=== PATIENT | female | born 1970 | race Caucasian/White ===

== ENCOUNTER 2021-03-24 15:22 | Emergency (ER) | payer BC, SELFPAY ==
[2021-03-24 16:20] VITALS: BP 146/81; PULSE 99; RESP 18; TEMP 36.9; O2SAT 98; BMI 29.2
[2021-03-24 17:02] LABS: UTC Influenza A Antigen Negative (Negative); UTC Influenza B Antigen Negative (Negative); UTC Strep Screen (Rapid) Negative (Negative)
--- NOTE | 2021-03-24 17:18 | HMH.EDUTC ---
[facility] Disposition Clinical Impression: Bronchitis Sinusitis Qualifiers: Sinusitis location: unspecified location Chronicity: unspecified Qualified Code(s): J32.9 - Chronic sinusitis, unspecified Disposition: Home, Self-Care Condition on Discharge: Good Instructions: Sinusitis, Acute Bronchitis, DI for Sinusitis Additional Instructions: *Monitor Temp, Over the counter Motrin or Tylenol as directed/as needed Tylenol every 4 hours and Motrin every 6 hours (as long as your family doctor has told you that you can take it) for fever or pain. and straight to ER if unable to lower temp less than 101.0 after medication given *Warm salt water gargles may help to soothe the throat *Throat Lozenges *Warm fluids like tea with honey may help to soothe the throat *Sleep elevated *Humidifier/Vaporizer *Flonase 2 sprays in each nostril daily but be aware that it may take 2-3 days before you notice improvement Take medication as prescribed Follow up IMMEDIATELY for new or worsening symptoms or no Noticeable improvement over the next 48-72 hours. 911 for difficulty breathing or swallowing You were tested for today for COVID19 your test result should be back in the next 24-48 hours, you was given handout on how to check for your results on [facility] Portal if you have issues or no internet access you may call the [facility] You was given a handout with instructions for Self Quarantine and Self isolation for while you wait on test results and what to do if they are positive If you are positive the Health Dept will be contacting you also Make sure to take your Vitamins Vit. C Vit D and Zinc if you can take them Prescriptions: Doxycycline Monohydrate [Doxycycline [place] 100mg Tab] 100 mg PO Q12 7 Days #14 tab Transmission Status: Pending to [facility] #[id number] Fluticasone Propionate [Flonase 50mcg nasal spray 16gm] 1 spr NS DAILY #1 each Transmission Status: Pending to [facility] #[id number] Referrals: Yadi Glynn MD [Primary Care Provider] - As needed Forms: Work/School Release Time of Disposition: 17:33 Medical Decision Making - Roge Inquiry Pt receiving controlled substance: No Roge was queried for this patient: No Vital Signs: 03/24/21 16:20 Temperature 98.4 F Temperature Source Oral Pulse Rate [Right Brachial] 99 H Respiratory Rate 18 Blood Pressure [Right Arm] 146/81 H Blood Pressure Mean [Right Arm] 102 Blood Pressure Source [Right Arm] Automatic Cuff Blood Pressure Position [Right Arm] Sitting 02 Sat by Pulse Oximetry 98 Oxygen Delivery Method Room Air - Lab Data Lab results reviewed: Yes: I reviewed the patient's lab results. Lab Results 03/24/21 17:00: Influenza Type A Ag Negative, Influenza Type B Ag Negative 03/24/21 17:00: Strep Scn Rapid Clinic Negative Orders (Tests/Meds): ORDERS Category Date Time Status Covid-19 Nasal PCR ([facility]) Routine Lab 03/24/21 17:00 Ordered Strep Screen Confirmation Stat Micro 03/24/21 17:00 Received [facility] UTC HPI - General Stated complaint: sore thros,coughSOB,GARZA,congestion Time Seen by Provider: 03/24/21 17:19 Mode of Arrival: Ambulatory Source of Information: Patient Limitations: No Limitations Description of Symptoms (Recalled from Triage Doc. by RN): PATIENT C/O HEAD AND CHEST CONGESTION, SORE THROAT, COUGH, SINUS PRESSURE AND HEADACHE X 3 WEEKS. RECENTLY TREATED BY PCP, IS NOT BETTER HEENT Symptoms (Recalled from RN notes): Yes Resp Symptoms (Recalled from RN notes): Yes Skin Symptoms (Recalled from RN notes): No MS Symptoms (Recalled from RN notes): No Functional Status (Recalled from RN notes): WNL - History of Present Illness Provider Complaint: Patient states that she has been having headache, sore throat Sinus pain and pressure and headache for about 3 weeks State that she seen her PCP and given medication but symptoms havent improved States that even her teeth are hurting now so she came back in to get checked - Related Data Pre
[2021-03-24 18:12] VITALS: BP 146/81; PULSE 99; RESP 18; TEMP 36.9; O2SAT 98
== END 2021-03-24 18:13 | disposition home or self-care (01) ==
PROVIDERS: Emergency Provider Nurse Practitioner; PCP Family Medicine
DX: U07.1 COVID-19 (principal); J20.9 Acute bronchitis, unspecified; J32.9 Chronic sinusitis, unspecified
CPT/HCPCS: 87804; 87880; 99203; C9803; G0463; U0003; U0005

== ENCOUNTER → 2021-08-04 14:09 | Outpatient (CLI) | payer BC, SELFPAY | PROVIDERS: Visit Provider Nurse Practitioner | DX: Z20.822 Contact with and (suspected) exposure to COVID-19 (principal) | CPT/HCPCS: C9803; U0003; U0005 ==

== ENCOUNTER → 2021-11-29 12:08 | Outpatient (CLI) | payer BC, SELFPAY | PROVIDERS: Visit Provider Surgery | DX: Z01.812 Encounter for preprocedural laboratory examination (principal); Z20.822 Contact with and (suspected) exposure to COVID-19; Z12.11 Encounter for screening for malignant neoplasm of colon | CPT/HCPCS: C9803; U0003; U0005 ==

== ENCOUNTER 2021-12-02 08:22 | Day surgery (SDC) | payer BC, SELFPAY ==
[2021-11-28 10:29] VITALS: BMI 32.1
[2021-12-02 08:46] VITALS: BP 169/79; PULSE 102; RESP 18; TEMP 36.8; O2SAT 97
--- NOTE | 2021-12-02 09:00 | P.PN_ITS ---
[facility] Anesthesia Checklist - Structural Data Admitted From: Home Planned Operative Procedure/s: colonoscopy Consent for Planned Operative Procedure(s) Verified: Yes - Airway Assessment C-Spine Mobility Assessed: Yes TMJ Mobility Assessed: Yes Dentition: Good Dentition - Neurological Assessment Level of Consciousness: Awake, Alert, Appropriate - Anesthesia Plan Anesthesia Risk discussed: Yes Anesthesia Plan: Verified ASA Class: I Anesthesia Type: MAC [facility] History I have reviewed the patient's past medical history: Yes Medical History: Denies:: Cancer, Diabetes Mellitus Type 1, Diabetes Mellitus Type 2, Internal Pacemaker, MRSA, Seizures *Have you ever received a pneumonia vaccine?: No *Have you received a flu vaccine this season?: Yes Anesthesia experience/problems:: none Other Surgeries: No: Pacemaker Amputation: No Fractures: No - *Social History Last grade of school completed: High school graduate Smoking Status: Never smoker Alcohol Intake: current Alcohol Intake Frequency:: a few times a week Substance Use Type: denies use *Occupational Status:: employed *Travel in the last 8 weeks: None Family Hx:: No significant family history
[2021-12-02 09:24] LABS: Urine Pregnancy, HCG Qual. Negative (Negative)
[2021-12-02 09:31] VITALS: O2SAT 97
--- NOTE | 2021-12-02 09:57 | HMH.SCOPE ---
- Procedure: Date: 12/02/21 Patient Date of :: 1970 Procedure Performed:: Colonoscopy Indications:: Screening Performing Provider:: Evangelista Holt MD Referring Provider:: . Sedation:: Monitored anesthesia care Procedure:: After informed consent was obtained the patient was taken to the endoscopy suite. Sedation ensued after the patient was transferred to the left lateral decubitus position. Pulse, blood pressure, and oxygen saturation were monitored throughout the procedure. Digital rectal exam revealed no significant abnormality. The colonoscope was placed in position. The entire colon was evaluated. The colonoscope was carefully removed and the patient was transferred to recovery in stable condition. Please see findings and specimens below for detail. Findings:: Bowel preparation moderate to poor (somewhat improved visualization with extensive irrigation and suctioning) Mild anal stenosis Mild hemorrhoidal cushions Mild scattered diverticulosis Specimens:: None Recommendations:: Repeat colonoscopy in approximately 3 years with extended bowel preparation. Complications:: No immediate Estimated blood obtained (mL): 0
[2021-12-02 10:00] VITALS: BP 119/66; PULSE 91; RESP 16; TEMP 36.5; O2SAT 96
[2021-12-02 10:10] VITALS: BP 118/69; PULSE 76; RESP 16; O2SAT 96
[2021-12-02 10:20] VITALS: BP 113/75; PULSE 76; RESP 16; O2SAT 96
[2021-12-02 10:30] VITALS: BP 113/75; PULSE 70; RESP 16; TEMP 36.5; O2SAT 97
== END 2021-12-02 10:30 | disposition home or self-care (01) ==
LOC: OUTP 08:23
PROVIDERS: PCP Family Medicine; Visit Provider Surgery
PROC: 0DJD8ZZ Inspection of Lower Intestinal Tract, Via Natural or Artificial Opening Endoscopic (ICD-10-PCS; CPT 45378; principal; 2021-12-02 09:30)
DX: Z12.11 Encounter for screening for malignant neoplasm of colon (principal); K62.4 Stenosis of anus and rectum; K57.30 Diverticulosis of large intestine without perforation or abscess without bleeding; K64.9 Unspecified hemorrhoids; Z79.82 Long term (current) use of aspirin; Z79.899 Other long term (current) drug therapy
CPT/HCPCS: 45378; 81025; J2704

== ENCOUNTER → 2022-07-06 08:19 | Outpatient (CLI) | payer BC, SELFPAY ==
--- NOTE | 2022-07-06 08:19 | US_ITS ---
FINAL REPORT CLINICAL HISTORY: abnormal vaginal bleeding FINDINGS: Transvaginal sonographic images of the pelvis were obtained. The uterus measures 93 x 63 x 50 mm. The endometrium measures 9 mm, which is within normal limits. There is a 2.6 x 2.1 cm mass in the fundus consistent with a fibroid. The right ovary measures 2.8 cm in length and left ovary measures 2.3 cm in length. Normal blood flow seen to the ovaries. Small follicles are present. There is no evidence of free fluid. IMPRESSION: 2.6 cm uterine fibroid. Reviewed, Interpreted and Dictated by Gil Kemp III, MD Transcribed by Mitchell John Authenticated and . [facility]
== END ==
PROVIDERS: PCP Family Medicine; Visit Provider Obstetrics & Gynecology
DX: N93.9 Abnormal uterine and vaginal bleeding, unspecified (principal)
CPT/HCPCS: 76830

== ENCOUNTER → 2022-07-22 16:38 | Outpatient (CLI) | payer BC, SELFPAY | LOC: RT 16:40 | PROVIDERS: PCP Family Medicine; Visit Provider Family Medicine | DX: R00.2 Palpitations (principal) | CPT/HCPCS: 93225; 93226 ==

== ENCOUNTER → 2022-08-28 11:43 | Outpatient (CLI) | payer BC, SELFPAY ==
[2022-08-28 12:38] LABS: Basophils # 0.1 K/mm3 (0-0.2); Eosinophils # 0.1 K/mm3 (0.0-0.4); Hematocrit 36.9 % (37.0-47.0); Hemoglobin 12.1 g/dL (12.2-16.2); Lymphocytes # 1.6 K/mm3 (0.7-4.5); Lymphocytes % 22.8 % (10-50); Mean Corpuscular HGB Conc 32.8 g/dL (31.8-35.4); Mean Corpuscular Hemoglobin 28.9 pg (27.0-31.2); Mean Corpuscular Volume 88.2 fl (81-99); Mean Platelet Volume 7.5 fl (7.4-10.4); Monocytes # 0.4 K/mm3 (0.1-1.0); Monocytes % 5.1 % (1.7-9.3); Neutrophils % 69.2 % (37.0-80.0); Platelet Count 449 K/mm3 (142-424); Red Blood Count 4.18 M/mm3 (4.20-5.40); Red Cell Distribution Width 16.3 % (11.5-17.5); White Blood Count 7.2 K/mm3 (4.8-10.8)
[2022-08-28 12:59] LABS: Chloride 107 mmol/L (98-107); Potassium 4.7 mmoL/L (3.5-5.1); Sodium 141 mmol/L (136-145)
[2022-08-28 13:02] LABS: Alanine Aminotransferase 23 U/L (12-78); Albumin Level 4.4 g/dl (3.5-5.0); Albumin/Globulin Ratio 1.7 (1.1-1.8); Alkaline Phosphatase 62 U/L (38-126); Anion Gap 9.7 mEq/L (5-15); Aspartate Amino Transferase 29 U/L (14-36); Bilirubin,Total 0.4 mg/dl (0.2-1.3); Blood Urea Nitrogen 8 mg/dl (7-17); Calcium 9.4 mg/dl (8.4-10.2); Carbon Dioxide 29 mmol/L (22.0-30.0); Estimated Glomerular Filt Rate 106 ml/min (>60); GFR (African American) 128 ML/MIN (>60); Globulin 2.6 g/dL (1.3-3.2); Glucose 99 mg/dl (74-100)
[2022-08-28 13:21] LABS: HCG,Quantitative < 2 mIU/ml (0-5.42)
== END ==
PROVIDERS: PCP Family Medicine; Visit Provider Obstetrics & Gynecology
DX: Z01.812 Encounter for preprocedural laboratory examination (principal); N92.0 Excessive and frequent menstruation with regular cycle
CPT/HCPCS: 36415; 80053; 84702; 85025

== ENCOUNTER 2022-08-31 06:02 | Day surgery (SDC) | payer BC, SELFPAY ==
[2022-08-27 13:24] VITALS: BMI 29.2
[2022-08-31 06:25] VITALS: BP 137/83; PULSE 88; RESP 18; TEMP 36.3; O2SAT 100
--- NOTE | 2022-08-31 06:57 | EXP.ANES.CKL ---
[facility] Disclaimer: The information contained in this section may have been updated after the patient was seen, as this information can be updated by other users. Medical History History of hypertension Hyperlipemia Obesity with body mass index greater than 30 Uterine leiomyoma Surgical History History of History of colonoscopy Family History Other Cancer Heart attack Hyperlipidemia Hypertension Thyroid disorder Social History Smoking Status: Never smoker alcohol intake: current substance use type: denies use current occupational status: employed Travel in the last 8 weeks: None household members: family housing: house marital status: education level: high school caffeine: No special deny needs: No agree to transfusion: No do you feel safe at home: Yes victim of physical abuse: No victim of emotional abuse: No victim of sexual abuse: No would you like helpful sources: No [facility] Anesthesia Checklist Patient Identification Patient Identification: Arm Band and Family Structural Data Admitted From: Home Planned Operative Procedure/s: D & C, Hysteroscopy, Myosure and Novasure. Consent for Planned Operative Procedure(s) Verified: Yes Verified Documents: Surgical Consent NPO Status Verified Time NPO: 00:00 Additional verifications Patient : No Anesthesia Reactions: No (Nausea) Hx Blood Transfusions: No Blood Transfusion Reaction: No Cephalosporin Allergy: No Previous Colonoscopy: No Airway Assessment C-Spine Mobility Assessed: Yes TMJ Mobility Assessed: Yes Dentition: Good Dentition Neurological Assessment Level of Consciousness: Awake, Alert, Appropriate and Follows Commands Hx Seizures: No Numbness or tingling in extremities: No Anesthesia Plan Anesthesia Risk discussed: Yes ASA Class: II Anesthesia Type: General Preoperative Comments Pre-Operative Comments: PONV, Scopolamine patch. Hypertension, murmur.
[2022-08-31 08:22] VITALS: BP 101/62; PULSE 80; RESP 16; TEMP 36.6; O2SAT 92
[2022-08-31 08:32] VITALS: BP 107/66; PULSE 82; RESP 16; O2SAT 92
[2022-08-31 08:42] VITALS: BP 113/71; PULSE 78; RESP 16; O2SAT 94
[2022-08-31 08:52] VITALS: BP 121/74; PULSE 76; RESP 16; O2SAT 95
[2022-08-31 09:26] VITALS: TEMP 43
--- NOTE | 2022-09-01 18:13 | P.OP_ITS ---
Date of procedure: 09/01/22 Pre-op Diagnosis:: 1 Heavy menstrual bleeding 2. Uterine fibroid 3. Severe dysmenorrhea Post-op Diagnosis:: Same Procedure performed:: D&C Hyseroscopy with Myosure excision of submucosal fibroid Surgeon:: Adriane Prasad MD MARKET GARDENER:: Other Anesthesia: MAC Estimated blood loss (mL): 5 Operative findings:: submucosal fibroid proliferative endometrium Operative note:: The patient was taken to the operating room and general anesthesia was administered. She was prepped/draped in lithotomy position. The anterior lip of the cervix was grasped with a single tooth tenaculum and the cervix was dilated with Wadsworth dilators of serially increasing size until the external os was able to accomodate the Myosure hysteroscope. The hysteroscope was advanced through the cervix and into the uterine cavity, which was distended with LR. Once the uterus was sufficiently distended, the cavity was evaluated and revealed proliferative endometrium and a uterine mass c/w fibroid. The Myosure was inserted into the hysteroscope and the fibriod was excised successfully and without complication or significant fluid deficit. The rest of the endometrium was biopsiedl After the conclusion of this procedure, the Myosure and hysteroscope were removed from the uterus. The uterine cavity sounded to a length of 7cm. The Novasure was inserted through the cervix and expanded to fit the width of the uterus, with a width of 3.5cm. After a successful cavity assessment, the device was deployed and the endometrial ablation was completed in 86seconds. Once the device had turned off, the Novasure was removed from the uterus and the hysteroscope was reinserted into the uterine cavity. The cavity appeared diffusely cauterized. The hysteroscope was removed from the uterus and all instruments removed from the vagina. The tenaculum site was hemostatic. All sponge/lap/needle/instrument counts correct x2. Total EBL: 5cc. The patient was taken out of lithotomy position, extubated and taken to the PACU in stable condition. Condition: stable Disposition: PACU Specimens:: endometrium Complications:: none
== END 2022-08-31 08:52 | disposition home or self-care (01) ==
PROVIDERS: PCP Family Medicine; Visit Provider Obstetrics & Gynecology
PROC: (CPT 58558; principal; 2022-08-31 07:30)
DX: N92.0 Excessive and frequent menstruation with regular cycle (principal); N94.6 Dysmenorrhea, unspecified; D25.0 Submucous leiomyoma of uterus; Z79.899 Other long term (current) drug therapy
CPT/HCPCS: 58558; 58561; 88305; 96374; J2405; J2704

== ENCOUNTER → 2022-09-07 10:53 | Outpatient (CLI) | payer BC, SELFPAY ==
[2022-09-07 12:00] LABS: Basophils # 0.1 K/mm3 (0-0.2); Basophils % 1.6 % (0.1-2.0); Eosinophils # 0.1 K/mm3 (0.0-0.4); Eosinophils % 1.3 % (0.1-12.0); Hematocrit 38.9 % (37.0-47.0); Hemoglobin 12.9 g/dL (12.2-16.2); Lymphocytes # 1.4 K/mm3 (0.7-4.5); Lymphocytes % 25.7 % (10-50); Mean Corpuscular HGB Conc 33.1 g/dL (31.8-35.4); Mean Corpuscular Hemoglobin 29.7 pg (27.0-31.2); Mean Corpuscular Volume 89.6 fl (81-99); Mean Platelet Volume 7.2 fl (7.4-10.4); Monocytes # 0.3 K/mm3 (0.1-1.0); Monocytes % 5.1 % (1.7-9.3); Neutrophils # 3.6 K/mm3 (1.8-7.8); Neutrophils % 66.3 % (37.0-80.0); Platelet Count 369 K/mm3 (142-424); Red Blood Count 4.34 M/mm3 (4.20-5.40); Red Cell Distribution Width 15.7 % (11.5-17.5); White Blood Count 5.4 K/mm3 (4.8-10.8)
[2022-09-07 12:23] LABS: Alanine Aminotransferase 24 U/L (12-78); Albumin Level 4.5 g/dl (3.5-5.0); Albumin/Globulin Ratio 1.7 (1.1-1.8); Alkaline Phosphatase 63 U/L (38-126); Aspartate Amino Transferase 29 U/L (14-36); Bilirubin,Total 0.5 mg/dl (0.2-1.3); Blood Urea Nitrogen 10 mg/dl (7-17); Calcium 9.3 mg/dl (8.4-10.2); Carbon Dioxide 24 mmol/L (22.0-30.0); Chloride 108 mmol/L (98-107); Estimated Glomerular Filt Rate 106 ml/min (>60); GFR (African American) 128 ML/MIN (>60); Globulin 2.6 g/dL (1.3-3.2); Glucose 113 mg/dl (74-100); Sodium 137 mmol/L (136-145); Total Protein,Serum 7.1 g/dl (6.3-8.2)
== END ==
PROVIDERS: PCP Family Medicine; Visit Provider Obstetrics & Gynecology
DX: R53.81 Other malaise (principal); R53.83 Other fatigue
CPT/HCPCS: 36415; 80053; 85025

== ENCOUNTER → 2022-10-12 17:17 | Outpatient (CLI) | payer BC, SELFPAY ==
[2022-10-12 17:31] LABS: Adenovirus,PCR Not Detected (NotDetected); Bordetella Pertussis Not Detected (NotDetected); Chlamydophila Pneumoniae, PCR Not Detected (NotDetected); Coronavirus 19, PCR Not Detected (NotDetected); Coronavirus 229E Not Detected (NotDetected); Coronavirus NL63 Not Detected (NotDetected); Coronavirus OC43 Not Detected (NotDetected); Coronovirus HKU1,PCR Not Detected (NotDetected); Human Metapneumovirus Not Detected (NotDetected); Influenza A, PCR Not Detected (NotDetected); Influenza AH1, 2009 Not Detected (NotDetected); Influenza AH1, PCR Not Detected (NotDetected); Influenza AH3,PCR Not Detected (NotDetected); Influenza B, PCR Not Detected (NotDetected); Mycoplasma Pneumoniae, PCR Not Detected (NotDetected); Parainfluenza 1, PCR Not Detected (NotDetected); Parainfluenza 2, PCR Not Detected (NotDetected); Parainfluenza 3, PCR Not Detected (NotDetected); Parainfluenza 4, PCR Not Detected (NotDetected); Respiratory Syncytial Virus Not Detected (NotDetected)
[2022-10-12 21:57] LABS: Rhinovirus/Enterovirus Detected (NotDetected)
== END ==
PROVIDERS: PCP Family Medicine; Visit Provider Family Medicine
DX: Z20.822 Contact with and (suspected) exposure to COVID-19 (principal); B34.1 Enterovirus infection, unspecified
CPT/HCPCS: 87581; 87632; 87798; C9803; U0003; U0005

== ENCOUNTER → 2022-12-01 15:42 | Outpatient (CLI) | payer BC, SELFPAY ==
--- NOTE | 2022-12-01 15:42 | US_ITS ---
FINAL REPORT CLINICAL HISTORY: abnormal bleeding after ablation FINDINGS: Transvaginal sonographic images of the pelvis were obtained. The uterus measures 9.0 x 4.7 x 6.2 cm. There is a 3 cm mass in the uterus consistent with a fibroid. The endometrium measures 8 mm. There is a small amount of endocervical fluid. The right ovary is not visualized. The left ovary measures 1.9 x 1.9 x 2.5 cm. There is a left ovarian cyst measuring 2.5 cm. Blood flow is seen to the ovary. IMPRESSION: Uterine fibroid. Left ovarian cyst. Endocervical fluid. Reviewed, Interpreted and Dictated by Gil Kemp III, MD Transcribed by Fay Escobar Authenticated and [facility]
== END ==
PROVIDERS: PCP Family Medicine; Visit Provider Obstetrics & Gynecology
DX: N93.9 Abnormal uterine and vaginal bleeding, unspecified (principal)
CPT/HCPCS: 76830

== ENCOUNTER → 2023-04-19 14:15 | Outpatient (CLI) | payer BC, SELFPAY | LOC: RT 14:16 | PROVIDERS: PCP Family Medicine; Visit Provider Family Medicine | DX: R55 Syncope and collapse (principal) | CPT/HCPCS: 93225; 93226 ==

== ENCOUNTER → 2023-05-14 14:11 | Outpatient (CLI) | payer BC, SELFPAY ==
--- NOTE | 2023-05-14 | CA_ITS ---
APPROVED REPORT EXAM: Comprehensive 2D, Doppler, and color-flow Echocardiogram Analysis Internship: Lona Preston RT(R) Ht: 5 ft 2 in Wt: 155lbs BSA: 1.72 BP: 130/84 mmHg Indications: HTN, hyperlipidemia, murmur 2D Dimensions LVOT 1.80 cm (M/F) 1.5-2.5 LA Volume 24.50 mL LA Volume Index 14.24 mL/m2 (M/F) 16-34 M-Mode Dimensions RVDd 2.41 cm (0.9-2.6) LA Diam 2.98 cm (1.9-4.0) LVDd 4.84 cm (3.5-5.7) Ao Diam 2.10 cm (2.0-3.7) LVDs 3.28 cm (3.5-5.7) IVSd 0.56 cm (0.6-1.1) PWd 0.56 cm (0.6-1.1) EF (Teich) 60.30% FS 32.20% EDV (Teich) 109.60 mL ESV (Teich) 43.50 mL LV Diastology E Decel Time 183.00 (160-240 msec) E/A Ratio 1.0 MED E' 14.00 (< 7 cm/sec) E'/MED E' Ratio 5.15 (>14) LAT E' 11.20 (<10 cm/sec) E/LAT E' Ratio 6.44 (>14) Mitral Valve MV E Max Bryce. 72.00 (40-130 cm/s) MV A Velocity 69.00 (40-130 cm/s) E/A Ratio 1.05 MV Decel. Time 183.00 (160-240 ms) MV PHT 54.00 ms Left Ventricle The left ventricle is normal size. The left ventricular systolic function is normal. The left ventricular ejection fraction is within the normal range. There is increased LV wall thickness. There is normal LV segmental wall motion. The left ventricular diastolic function is normal. LVEF is 55%. Right Ventricle The right ventricle is normal size. The right ventricular systolic function is normal. Atria The left atrium size is normal. The right atrium size is normal. There is no Doppler evidence of interatrial shunt. Aortic Valve The aortic valve opens well. There is no aortic valvular stenosis. No aortic regurgitation is present. Mitral Valve The mitral valve is normal in structure. No evidence of mitral valve stenosis. Mild mitral regurgitation. Tricuspid Valve Tricuspid valve leaflets are thin and pliable. Trace tricuspid regurgitation. There is insufficient TR jet to estimate RVSP. Pulmonic Valve The pulmonary valve is normal in structure. Trace pulmonic regurgitation. Great Vessels The aortic root is normal in size. The ascending aorta is normal in size. IVC is normal in size and collapses >50% with inspiration. Pericardium There is no pericardial effusion. Other Information Study Quality: Fair Conclusion Normal biventricular systolic function. Mild MR. Electronically signed by : Delisa Eduardo MD 05/18/2023 21:05:22
== END ==
PROVIDERS: PCP Family Medicine; Visit Provider Family Medicine
DX: R55 Syncope and collapse (principal)
CPT/HCPCS: 93306

== ENCOUNTER 2023-08-30 13:40 | Outpatient (CLI) | payer BC, SELFPAY ==
--- NOTE | 2023-08-30 13:41 | US_ITS ---
PROCEDURE: US TRANSVAGINAL CLINICAL INDICATION: AUB/ Post Ablation COMPARISON: US US TRANSVAGINAL from 12/01/2022 FINDINGS: Transvaginal sonographic images of the pelvis were obtained. UTERUS: 8.3cm x 6.3cmx 4.6 cm anteverted with a combined endometrial thickness of 4.6mm. Endometrium is not well visualized. There is a nabothian cyst in the cervix that measures 8.5 mm. Post ablation changes seen within the uterus. Anterior fibroid measuring 2.8 cm x 2.8 cm x 3.7 cm. Posterior fundal fibroid measuring 1.6 cm x 1.5 cm x 1.9 cm. LEFT OVARY: 2.6 cmx2.2cmx1.2cm with a volume of 3.5ml. RIGHT OVARY: 1.9 cmx 1.1cmx1.4cm with a volume of 1.5ml. Both ovaries are seen and appear atrophic. Doppler flow to both ovaries are seen. There is no fluid in the cul-de-sac. IMPRESSION: 1. Anteverted uterus normal in shape and size. There are 2 fibroids seen within the myometrium. An anterior fibroid measures 3.7 cm. A posterior fundal fibroid measures 1.9 cm. No appreciable change in the fibroid size. 2. Endometrium is not well defined. Likely post ablation changes. 3. Both ovaries are seen and appear atrophic. 4. No fluid in the cul-de-sac. Dictated by: Guy Gunter MD 08/30/2023 16:06 Guy Gunter MD in OV 08/30/2023 16:06
== END 2023-08-30 23:59 ==
LOC: RAD 13:41
PROVIDERS: PCP Family Medicine; Visit Provider Obstetrics & Gynecology
DX: N93.9 Abnormal uterine and vaginal bleeding, unspecified (principal)
CPT/HCPCS: 76830

== ENCOUNTER 2024-02-04 08:43 | Outpatient (CLI) | payer MEDICAID, SELFPAY ==
[2024-02-04 17:54] LABS: Alanine Aminotransferase 54 U/L (12-78); Albumin Level 4.7 g/dl (3.5-5.0); Albumin/Globulin Ratio 1.7 (1.1-1.8); Alkaline Phosphatase 47 U/L (38-126); Anion Gap 13.2 mEq/L (5-15); Aspartate Amino Transferase 50 U/L (14-36); Bilirubin,Total 0.9 mg/dl (0.2-1.3); Blood Urea Nitrogen 7 mg/dl (7-17); Calcium 10.3 mg/dl (8.4-10.2); Carbon Dioxide 24 mmol/L (22.0-30.0); Chloride 107 mmol/L (98-107); Chol/HDL Ratio 2.7 (1-3.5); Cholesterol 196 mg/dl (140-200); Estimated Glomerular Filt Rate 130 ml/min (>60); GFR (African American) 157 ML/MIN (>60); Globulin 2.8 g/dL (1.3-3.2); Glucose 114 mg/dl (74-100); HDL Cholesterol 73 mg/dl (40-60); Potassium 4.2 mmoL/L (3.5-5.1); Sodium 140 mmol/L (136-145); Total Protein,Serum 7.5 g/dl (6.3-8.2); Triglycerides 95 mg/dl (30-150); VLDL Cholesterol 19 mg/dL (0-40)
[2024-02-04 17:58] LABS: Basophils # 0.1 K/mm3 (0-0.2); Eosinophils % 0.4 % (0.1-12.0); Lymphocytes # 1.4 K/mm3 (0.7-4.5); Mean Corpuscular HGB Conc 36.7 g/dL (31.8-35.4); Mean Corpuscular Hemoglobin 37.4 pg (27.0-31.2); Monocytes # 0.4 K/mm3 (0.1-1.0); Monocytes % 5.4 % (1.7-9.3); Neutrophils # 5.8 K/mm3 (1.8-7.8); Neutrophils % 75.3 % (37.0-80.0); Platelet Count 304 K/mm3 (142-424); Red Blood Count 4.02 M/mm3 (4.20-5.40); Red Cell Distribution Width 13.4 % (11.5-17.5); White Blood Count 7.7 K/mm3 (4.8-10.8)
[2024-02-04 18:05] LABS: Direct LDL Cholesterol 96.81 mg/dL (100-129)
[2024-02-04 18:06] LABS: 25-OH Vitamin D, Total 107 ng/mL (30-100)
[2024-02-04 18:25] LABS: Thyroid Stimulating Hormone 0.44 uIU/mL (0.465-4.68)
[2024-02-04 18:44] LABS: Vitamin B12 448 pg/mL (239-931)
[2024-02-04 20:35] LABS: Ferritin 77.7 ng/ml (11.1-264)
== END 2024-02-04 23:59 | disposition home or self-care (01) ==
LOC: LAB.DROPOF 02-07 08:44
PROVIDERS: PCP Nurse Practitioner Family; Visit Provider Nurse Practitioner Family
DX: E78.5 Hyperlipidemia, unspecified (principal); D64.9 Anemia, unspecified; R79.89 Other specified abnormal findings of blood chemistry
CPT/HCPCS: 80050; 80053; 80061; 82306; 82607; 82728; 84443; 85025

== ENCOUNTER 2024-02-07 07:19 | Outpatient (CLI) | payer MEDICAID, SELFPAY ==
[2024-02-07 17:03] LABS: T4 (Thyroxine) 7.8 ug/dl (5.53-11.0)
[2024-02-08 12:55] LABS: Triiodothyronine (T3) Free 3.2 pg/mL (2.0-4.4)
== END 2024-02-07 23:59 | disposition home or self-care (01) ==
LOC: LAB.DROPOF 02-09 07:20
PROVIDERS: PCP Nurse Practitioner Family; Visit Provider Nurse Practitioner Family
DX: R79.89 Other specified abnormal findings of blood chemistry (principal)
CPT/HCPCS: 84436; 84481

== ENCOUNTER 2024-03-08 16:10 | Outpatient (CLI) | payer MEDICAID, SELFPAY ==
[2024-03-08 14:15] LABS: Free T4 (Free Thyroxine) 1.07 ng/dl (0.78-2.19); T4 (Thyroxine) 7.9 ug/dl (5.53-11.0)
== END 2024-03-08 23:59 | disposition home or self-care (01) ==
LOC: LAB.DROPOF 16:10
PROVIDERS: PCP Nurse Practitioner Family; Visit Provider Nurse Practitioner Family
DX: R79.89 Other specified abnormal findings of blood chemistry (principal)
CPT/HCPCS: 84436; 84439; 84443; 84480; 86376; 86800

== ENCOUNTER 2024-04-07 10:19 | Outpatient (CLI) | payer MEDICAID, SELFPAY ==
--- NOTE | 2024-04-07 10:25 | XR_ITS ---
FINAL REPORT CLINICAL HISTORY: Chest congestion COMPARISON: None FINDINGS: No acute pulmonary density is evident. There is no evidence of effusion or other pleural disease. The mediastinum has a normal appearance. The cardiac silhouette is unremarkable. IMPRESSION: Unremarkable chest exam. Reviewed, Interpreted and Dictated by Yadi Wheeler MD Transcribed by Cadence Munoz Authenticated and [facility]
[2024-04-07 10:35] LABS: Adenovirus,PCR Not Detected (NotDetected); Bordetella Pertussis Not Detected (NotDetected); Chlamydophila Pneumoniae, PCR Not Detected (NotDetected); Coronavirus 19, PCR Not Detected (NotDetected); Coronavirus 229E Not Detected (NotDetected); Coronavirus NL63 Not Detected (NotDetected); Coronavirus OC43 Not Detected (NotDetected); Coronovirus HKU1,PCR Not Detected (NotDetected); Human Metapneumovirus Not Detected (NotDetected); Influenza A, PCR Not Detected (NotDetected); Influenza AH1, 2009 Not Detected (NotDetected); Influenza AH1, PCR Not Detected (NotDetected); Influenza AH3,PCR Not Detected (NotDetected); Influenza B, PCR Not Detected (NotDetected); Mycoplasma Pneumoniae, PCR Not Detected (NotDetected); Parainfluenza 2, PCR Not Detected (NotDetected); Parainfluenza 3, PCR Not Detected (NotDetected); Parainfluenza 4, PCR Not Detected (NotDetected); Respiratory Syncytial Virus Not Detected (NotDetected); Rhinovirus/Enterovirus Not Detected (NotDetected)
[2024-04-07 13:40] LABS: Parainfluenza 1, PCR Detected (NotDetected)
== END 2024-04-07 23:59 | disposition home or self-care (01) ==
LOC: LAB 10:21
PROVIDERS: PCP Internal Medicine; Visit Provider Internal Medicine
DX: R53.83 Other fatigue (principal); R69 Illness, unspecified; R05.9 Cough, unspecified
CPT/HCPCS: 71046; 87265; 87486; 87581; 87632; 87635

== ENCOUNTER 2024-04-28 16:58 | Outpatient (CLI) | payer MEDICAID, SELFPAY ==
[2024-04-28 16:50] LABS: Basophils # 0.1 K/mm3 (0-0.2); Basophils % 1.2 % (0.1-2.0); Eosinophils # 0.1 K/mm3 (0.0-0.4); Eosinophils % 0.8 % (0.1-12.0); Hematocrit 40.6 % (37.0-47.0); Hemoglobin 14.5 g/dL (12.2-16.2); Lymphocytes % 28.2 % (10-50); Mean Corpuscular HGB Conc 35.7 g/dL (31.8-35.4); Mean Corpuscular Hemoglobin 34.1 pg (27.0-31.2); Mean Corpuscular Volume 95.4 fl (81-99); Mean Platelet Volume 7.5 fl (7.4-10.4); Monocytes # 0.3 K/mm3 (0.1-1.0); Monocytes % 4.3 % (1.7-9.3); Neutrophils # 4.7 K/mm3 (1.8-7.8); Neutrophils % 65.6 % (37.0-80.0); Platelet Count 338 K/mm3 (142-424); Red Blood Count 4.26 M/mm3 (4.20-5.40); Red Cell Distribution Width 13.2 % (11.5-17.5); White Blood Count 7.2 K/mm3 (4.8-10.8)
[2024-04-28 17:06] LABS: Albumin Level 4.8 g/dl (3.5-5.0); Chloride 106 mmol/L (98-107); Sodium 138 mmol/L (136-145)
[2024-04-28 17:07] LABS: Potassium 3.7 mmoL/L (3.5-5.1)
[2024-04-28 17:09] LABS: Alanine Aminotransferase 28 U/L (12-78); Alkaline Phosphatase 47 U/L (38-126); Anion Gap 13.7 mEq/L (5-15); Aspartate Amino Transferase 28 U/L (14-36); Bilirubin,Total 0.8 mg/dl (0.2-1.3); Blood Urea Nitrogen 12 mg/dl (7-17); Carbon Dioxide 22 mmol/L (22.0-30.0); Estimated Glomerular Filt Rate 105 ml/min (>60); GFR (African American) 128 ML/MIN (>60); Globulin 2.4 g/dL (1.3-3.2); Total Protein,Serum 7.2 g/dl (6.3-8.2)
[2024-04-28 17:10] LABS: Calcium 10.2 mg/dl (8.4-10.2); Chol/HDL Ratio 3.4 (1-3.5); Cholesterol 148 mg/dl (140-200); Glucose 87 mg/dl (74-100); HDL Cholesterol 43 mg/dl (40-60); Triglycerides 147 mg/dl (30-150); VLDL Cholesterol 29 mg/dL (0-40)
[2024-04-28 17:22] LABS: Direct LDL Cholesterol 70.26 mg/dL (100-129)
[2024-04-28 17:28] LABS: 25-OH Vitamin D, Total 84.3 ng/mL (30-100); T4 (Thyroxine) 10.9 ug/dl (5.53-11.0)
[2024-04-28 17:41] LABS: Thyroid Stimulating Hormone 0.35 uIU/mL (0.465-4.68)
[2024-04-28 17:45] LABS: Ferritin 91.9 ng/ml (11.1-264)
[2024-04-28 18:20] LABS: Free T4 (Free Thyroxine) 1.45 ng/dl (0.78-2.19)
[2024-04-28 20:44] LABS: Vitamin B12 526 pg/mL (239-931)
== END 2024-04-28 23:59 | disposition home or self-care (01) ==
LOC: LAB.DROPOF 16:59
PROVIDERS: PCP Nurse Practitioner Family; Visit Provider Nurse Practitioner Family
DX: R79.89 Other specified abnormal findings of blood chemistry (principal); E78.5 Hyperlipidemia, unspecified; D64.9 Anemia, unspecified
CPT/HCPCS: 80050; 80053; 80061; 82306; 82607; 82728; 84436; 84439; 84443; 84481; 85025

== ENCOUNTER 2024-05-24 15:35 | Outpatient (CLI) | payer MEDICAID, SELFPAY ==
--- NOTE | 2024-05-24 15:40 | XR_ITS ---
FINAL REPORT CLINICAL HISTORY: low back pain FINDINGS: LUMBAR SPINE 3 views were obtained. There is no acute fracture. Vertebrae are normal height. There is no malalignment. There are mild degenerative changes. There is no soft tissue abnormality. IMPRESSION: Degenerative changes with no acute bony abnormality. Reviewed, Interpreted and Dictated by Gil Kemp III, MD Transcribed by Sandra Negron Authenticated and [facility]
--- NOTE | 2024-05-24 15:40 | XR_ITS ---
FINAL REPORT CLINICAL HISTORY: Low back and hip pain FINDINGS: SINGLE VIEW PELVIS: A single view of the pelvis was obtained. There is no acute fracture or dislocation. There are mild degenerative changes. Soft tissues are unremarkable. IMPRESSION: Degenerative changes with no acute bony abnormality. Reviewed, Interpreted and Dictated by Gil Kemp III, MD Transcribed by Sandra Negron Authenticated and [facility]
== END 2024-05-24 23:59 | disposition home or self-care (01) ==
LOC: RAD 15:35
PROVIDERS: PCP Nurse Practitioner Family; Visit Provider Internal Medicine
DX: M54.50 Low back pain, unspecified (principal)
CPT/HCPCS: 72100; 72170

== ENCOUNTER 2024-06-27 16:26 | Outpatient (CLI) | payer MEDICAID, SELFPAY ==
--- NOTE | 2024-06-27 16:27 | MR_ITS ---
PROCEDURE INFORMATION: Exam: MR Right Lower Extremity Joint Without and With Contrast; Hip Exam date and time: 06/27/2024 4:56 PM Age: 54 years old Clinical indication: Pain; Hip; Right; Additional info: Right hip pain, decrease in range of motion TECHNIQUE: Imaging protocol: Magnetic resonance imaging of the right lower extremity joint without and with contrast. Exam focused on the hip. Contrast material: ISOVUE; Contrast volume: 13 ml; Contrast route: IV; COMPARISON: CR XR PELVIS 1-2V 05/24/2024 3:46 PM FINDINGS: Bones/joints: Unremarkable. No bone abnormalities. Articular cartilage is normal. No joint effusion. Labrum: Unremarkable. No tear. TENDONS: Tendons of iliopsoas group: Unremarkable. No evidence of tear. Tendons of medial compartment of thigh: Unremarkable. No evidence of tear. Tendons of lateral rotators of hip: Unremarkable. No evidence of tear. Tendons of gluteal group: Unremarkable. No evidence of tear. Soft tissues: Unremarkable. IMPRESSION: Unremarkable MR Hip.
[2024-06-27 16:55] LABS: Blood Urea Nitrogen 18 mg/dl (7-17); Estimated Glomerular Filt Rate 88 ml/min (>60); GFR (African American) 106 ML/MIN (>60)
[2024-06-27] MEDS: SODIUM CHLORIDE 0.9% 10ML SYR (RAD ONLY) 10 ML IV (17:37)
[2024-06-27] MEDS: GADOTERIDOL INJ 20ML SYRINGE 13 ML IV (17:37)
== END 2024-06-27 23:59 | disposition home or self-care (01) ==
LOC: RAD 16:27
PROVIDERS: PCP Nurse Practitioner Family; Visit Provider Nurse Practitioner Family
DX: M25.551 Pain in right hip (principal); M25.651 Stiffness of right hip, not elsewhere classified
CPT/HCPCS: 36415; 73723; 82565; 84520; A9576

== ENCOUNTER 2024-07-18 15:28 | Outpatient (CLI) | payer MEDICAID, SELFPAY ==
--- NOTE | 2024-07-18 15:30 | XR_ITS ---
FINAL REPORT CLINICAL HISTORY: Rt shoulder pain COMPARISON: None FINDINGS: RIGHT SHOULDER Three views demonstrate no acute fracture or dislocation. The visualized joint spaces are normally aligned. The soft tissues are unremarkable. IMPRESSION: No acute process. Reviewed, Interpreted and Dictated by Abel Orellana MD Transcribed by Estee Nagy Authenticated and [facility]
--- NOTE | 2024-07-18 15:30 | XR_ITS ---
FINAL REPORT CLINICAL HISTORY: cervicalgia, right arm numbness/tingling COMPARISON: None FINDINGS: CERVICAL SPINE 5 views were obtained. There is no acute fracture or malalignment. There is moderate disc space narrowing at C3-4. Reversal of the normal cervical lordosis is noted. There is moderate anterior osteophyte formation at C3-4, C4-5, and C5-6. IMPRESSION: Hypertrophic changes of degenerative disc disease most evident at C3-4. Reviewed, Interpreted and Dictated by Abel Orellana MD Transcribed by Estee Nagy Authenticated and [facility]
[2024-07-18 16:44] LABS: Erythrocyte Sedimentation Rate 18 mm/hr (0-30)
[2024-07-18 17:23] LABS: Uric Acid 3.2 mg/dl (2.5-6.2)
[2024-07-19 03:55] LABS: RA Latex Turbid. <10.0 IU/mL (<14.0)
[2024-07-19 16:13] LABS: Antinuclear Antibodies, IFA Negative (.)
== END 2024-07-18 23:59 | disposition home or self-care (01) ==
LOC: RAD 15:29
PROVIDERS: PCP Nurse Practitioner Family; Visit Provider Nurse Practitioner Family
DX: M25.511 Pain in right shoulder (principal); M54.2 Cervicalgia; R20.0 Anesthesia of skin; R20.2 Paresthesia of skin; M19.041 Primary osteoarthritis, right hand; M19.042 Primary osteoarthritis, left hand; Z82.61 Family history of arthritis
CPT/HCPCS: 72050; 73030; 84550; 85651; 86038; 86431

== ENCOUNTER 2024-07-25 16:03 | Outpatient (CLI) | payer MEDICAID, SELFPAY ==
[2024-07-25 13:58] LABS: Basophils # 0.1 K/mm3 (0-0.2); Basophils % 0.8 % (0.1-2.0); Eosinophils % 0.7 % (0.1-12.0); Hematocrit 39.2 % (37.0-47.0); Hemoglobin 13.6 g/dL (12.2-16.2); Lymphocytes # 1.4 K/mm3 (0.7-4.5); Mean Corpuscular HGB Conc 34.7 g/dL (31.8-35.4); Mean Corpuscular Hemoglobin 32.8 pg (27.0-31.2); Mean Corpuscular Volume 94.5 fl (81-99); Mean Platelet Volume 9.2 fl (7.4-10.4); Monocytes # 0.5 K/mm3 (0.1-1.0); Monocytes % 7.9 % (1.7-9.3); Neutrophils % 67.4 % (37.0-80.0); Platelet Count 307 K/mm3 (142-424); Red Blood Count 4.15 M/mm3 (4.20-5.40); Red Cell Distribution Width 12.8 % (11.5-17.5)
[2024-07-25 14:34] LABS: Albumin Level 4.5 g/dl (3.5-5.0); Chloride 102 mmol/L (98-107); Potassium 4.2 mmoL/L (3.5-5.1); Sodium 135 mmol/L (136-145)
[2024-07-25 14:36] LABS: Alanine Aminotransferase 20 U/L (12-78); Anion Gap 10.2 mEq/L (5-15); Aspartate Amino Transferase 25 U/L (14-36); Blood Urea Nitrogen 19 mg/dl (7-17); Carbon Dioxide 27 mmol/L (22.0-30.0); Estimated Glomerular Filt Rate 88 ml/min (>60); GFR (African American) 106 ML/MIN (>60)
[2024-07-25 14:37] LABS: Albumin/Globulin Ratio 2.3 (1.1-1.8); Alkaline Phosphatase 44 U/L (38-126); Bilirubin,Total 0.7 mg/dl (0.2-1.3); Cholesterol 162 mg/dl (140-200); Glucose 88 mg/dl (74-100); HDL Cholesterol 54 mg/dl (40-60); Total Protein,Serum 6.5 g/dl (6.3-8.2); Triglycerides 157 mg/dl (30-150); VLDL Cholesterol 31 mg/dL (0-40)
[2024-07-25 14:48] LABS: Direct LDL Cholesterol 71.75 mg/dL (100-129)
[2024-07-25 14:55] LABS: Free T4 (Free Thyroxine) 0.87 ng/dl (0.78-2.19)
[2024-07-25 14:58] LABS: T4 (Thyroxine) 7.5 ug/dl (5.53-11.0)
[2024-07-25 15:16] LABS: Ferritin 76.5 ng/ml (11.1-264)
[2024-07-25 16:01] LABS: 25-OH Vitamin D, Total 96.3 ng/mL (30-100)
[2024-07-25 17:25] LABS: Vitamin B12 337 pg/mL (239-931)
[2024-07-26 08:33] LABS: Triiodothyronine (T3) Free 3.1 pg/mL (2.0-4.4)
== END 2024-07-25 23:59 | disposition home or self-care (01) ==
LOC: LAB.DROPOF 16:03
PROVIDERS: PCP Nurse Practitioner Family; Visit Provider Nurse Practitioner Family
DX: R79.89 Other specified abnormal findings of blood chemistry (principal); D64.9 Anemia, unspecified; I10 Essential (primary) hypertension; E78.49 Other hyperlipidemia
CPT/HCPCS: 80053; 80061; 82306; 82607; 82728; 84436; 84439; 84443; 84481; 85025

== ENCOUNTER 2024-08-03 14:15 | Outpatient (CLI) | payer MEDICAID, SELFPAY ==
--- NOTE | 2024-08-03 14:16 | MR_ITS ---
FINAL REPORT CLINICAL HISTORY: RIGHT SHOULDER PAIN X 2-3 MONTHS TIGHTNESS AND PRESSURE IN SHOULDER FINDINGS: Multi planar MR imaging of the right shoulder was performed. There is abnormal signal in the distal supraspinatus tendon consistent with tendinosis and minimal partial intrasubstance tear. There is no abnormal fluid in the subacromial/subdeltoid bursa. The anterior and posterior glenoid fariba appear intact. The biceps tendon appears intact. There are mild to moderate hypertrophic changes of the AC joint. Mild edema seen in the distal clavicle. There is a fluid signal intensity structure along the posterior and medial aspect of the glenohumeral joint measuring up to 2.0 x 1.0 cm, probably related to a paralabral or ganglion cyst. IMPRESSION: Tendinosis and partial intrasubstance tear of the distal supraspinatus tendon. Fluid signal intensity structure in the posterior medial aspect of the glenohumeral joint, probably related to a paralabral or ganglion cyst. Moderate hypertrophic changes of the AC joint. Reviewed, Interpreted and Dictated by Abel Orellana MD Transcribed by Fay Escobar Authenticated and [facility]
== END 2024-08-03 23:59 | disposition home or self-care (01) ==
LOC: RAD 14:16
PROVIDERS: PCP Nurse Practitioner Family; Visit Provider Nurse Practitioner Family
DX: M25.511 Pain in right shoulder (principal); R20.0 Anesthesia of skin; R20.2 Paresthesia of skin
CPT/HCPCS: 73221

== ENCOUNTER 2024-09-12 12:23 | Outpatient (CLI) | payer MEDICAID, SELFPAY ==
[2024-09-12 12:49] VITALS: BMI 24.5
[2024-09-12 13:13] LABS: Basophils # 0.1 K/mm3 (0-0.2); Basophils % 1.6 % (0.1-2.0); Eosinophils % 0.3 % (0.1-12.0); Hematocrit 38.6 % (37.0-47.0); Hemoglobin 13.6 g/dL (12.2-16.2); Lymphocytes # 1.5 K/mm3 (0.7-4.5); Lymphocytes % 23.7 % (10-50); Mean Corpuscular HGB Conc 35.2 g/dL (31.8-35.4); Mean Corpuscular Hemoglobin 32.6 pg (27.0-31.2); Mean Corpuscular Volume 92.6 fl (81-99); Monocytes # 0.5 K/mm3 (0.1-1.0); Monocytes % 7.9 % (1.7-9.3); Neutrophils # 4.1 K/mm3 (1.8-7.8); Neutrophils % 66.3 % (37.0-80.0); Platelet Count 312 K/mm3 (142-424); Red Blood Count 4.17 M/mm3 (4.20-5.40); Red Cell Distribution Width 12.2 % (11.5-17.5); White Blood Count 6.1 K/mm3 (4.8-10.8)
[2024-09-12 13:17] LABS: Chloride 102 mmol/L (98-107)
[2024-09-12 13:18] LABS: Sodium 138 mmol/L (136-145)
[2024-09-12 13:21] LABS: Blood Urea Nitrogen 18 mg/dl (7-17); Calcium 9.8 mg/dl (8.4-10.2); Carbon Dioxide 28 mmol/L (22.0-30.0); Creatinine Clearance Estimated 90 mL/min (50-200); Estimated Glomerular Filt Rate 88 ml/min (>60); GFR (African American) 106 ML/MIN (>60); Glucose 108 mg/dl (74-100)
== END 2024-09-12 23:59 | disposition home or self-care (01) ==
LOC: PREOP 12:23
PROVIDERS: Nurse Anesthetist, Certified Registered; PCP Nurse Practitioner Family; Visit Provider Orthopaedic Surgery
DX: Z01.812 Encounter for preprocedural laboratory examination (principal)
CPT/HCPCS: 80048; 85025

== ENCOUNTER 2024-09-13 08:23 | Day surgery (SDC) | payer MEDICAID, SELFPAY ==
[2024-09-12 13:10] VITALS: BMI 24.5
[2024-09-13 09:04] LABS: Urine Pregnancy, HCG Qual. Negative (Negative)
[2024-09-13] MEDS: LACTATED RINGERS 1000ML 1,000 ML 100 ML IV (09:05)
[2024-09-13 09:13] VITALS: BP 127/72; PULSE 72; RESP 18; TEMP 36.1; O2SAT 98
[2024-09-13] MEDS: CEFAZOLIN SODIUM 2 GM in 0.9 % SODIUM CHLORIDE 100 ML IV (09:50)
[2024-09-13] MEDS: LIDOCAINE 1% W/EPI 1:100,000 20ML VIAL 20 ML (10:15)
[2024-09-13 10:36] VITALS: BP 113/62; PULSE 110; RESP 16; TEMP 36.2; O2SAT 95
[2024-09-13 10:46] VITALS: BP 115/69; PULSE 103; RESP 16; O2SAT 96
--- NOTE | 2024-09-13 10:49 | EXP.OP.NOTE ---
Date of procedure: 09/13/24 Pre-op Diagnosis:: Right carpal tunnel syndrome Post-op Diagnosis:: Same Procedure performed:: Right endoscopic carpal tunnel release Surgeon:: Gurmeet Cerrato DO Customer Care Coordinator(s):: Kwesi FERNANDEZ SUPERVISOR [employer]:: Govind Vasquez Anesthesia: MAC and local Estimated blood loss (mL): 0 Operative findings:: See dictation Operative note:: Patient identified preoperatively. Right wrist marked with yes and my initials. Transferred operative suite. Placed upon operating bed. Given sedation. Right upper extremity prepped and draped in normal sterile fashion. Once prepped and draped final operative timeout performed to identify proper patient procedure and extremity. Everyone involved in the case agreed. There is no counter indications to beginning. Did receive preoperative antibiotics. Marking pen was used to eloise plan incision over the volar wrist. Esmarch was used to exsanguinate the extremity and pneumatic tourniquet inflated to 250 mmHg. Skin knife is used to incise the skin careful dissection is taken down retractors were placed to identify the most proximal aspect of the transverse carpal ligament. Once identified the smaller dilator followed by the larger dilator was placed into the carpal tunnel followed by the 4.0 mm right sided sled from the endoscopic carpal tunnel set segway. The transverse carpal ligament was clearly seen superiorly within the camera the hook was used to identify the most distal aspect of the transverse carpal ligament followed by the soft tissue rasp to remove the soft tissue from the undersurface. Then the hook blade was placed under direct visualization and complete release of the transverse carpal ligament was performed under direct visualization. Sled was removed irrigation performed skin closed with Monocryl stitch sterile hand dressing placed patient waken anesthesia taken recovery stable condition. Condition: stable Disposition: PACU Complications:: None apparent
[2024-09-13 10:56] VITALS: BP 118/69; PULSE 96; RESP 16; O2SAT 98
[2024-09-13 11:06] VITALS: BP 108/67; PULSE 87; RESP 16; O2SAT 96
--- NOTE | 2024-09-13 11:41 | P.PNANES_ITS ---
[facility] Disclaimer: The information contained in this section may have been updated after the patient was seen, as this information can be updated by other users. Medical History History of cardiac murmur Endometriosis Obesity with body mass index greater than 30 Uterine leiomyoma Hyperlipemia History of hypertension Surgical History History of endometrial ablation History of History of colonoscopy Family History Other Cancer Heart attack Hyperlipidemia Hypertension Thyroid disorder Social History Smoking Status: Never smoker alcohol intake: never substance use type: denies use current occupational status: employed Travel in the last 8 weeks: None household members: family housing: house marital status: education level: high school caffeine: No special deny needs: No agree to transfusion: No do you feel safe at home: Yes victim of physical abuse: No victim of emotional abuse: No victim of sexual abuse: No would you like helpful sources: No [facility] Anesthesia Checklist Patient Identification Patient Identification: Verbal (Name & ) Structural Data Admitted From: Home Planned Operative Procedure/s: carpal tunnel release Consent for Planned Operative Procedure(s) Verified: Yes NPO Status Verified Time NPO: 00:00 Additional verifications Anesthesia Reactions: No (Nausea) Hx Blood Transfusions: No Blood Transfusion Reaction: No Airway Assessment Mallampati Score:: Class II C-Spine Mobility Assessed: Yes TMJ Mobility Assessed: Yes Dentition: Good Dentition Neurological Assessment Level of Consciousness: Awake, Alert and Appropriate Anesthesia Plan Anesthesia Risk discussed: Yes Anesthesia Plan: Verified ASA Class: II Anesthesia Type: MAC
== END 2024-09-13 11:10 | disposition home or self-care (01) ==
PROVIDERS: PCP Nurse Practitioner Family; Visit Provider Orthopaedic Surgery
PROC: (CPT 64721; principal; 2024-09-13 10:00)
DX: G56.01 Carpal tunnel syndrome, right upper limb (principal)
CPT/HCPCS: 29848; 81025; 96374; J0690; J1100; J2405; J3010; J7120

== ENCOUNTER 2024-10-02 08:41 | Outpatient (CLI) | payer MEDICAID, SELFPAY ==
--- NOTE | 2024-10-02 08:44 | XR_ITS ---
FINAL REPORT TECHNIQUE: Bone densitometry calculations of the lumbar spine and left hip were obtained. CLINICAL HISTORY: penitentiary use of Depo COMPARISON: None FINDINGS: Using L1-4, the bone mineral density of the spine is 1.105 g/cm2, corresponding to T-score of 0.5, with a Z-score of 1.4. Using the left hip, the bone mineral density of the femoral neck is 0.720 g/cm2, corresponding to a T-score of -1.2, with a Z-score of -0.2. Using the right hip, the bone mineral density of the femoral neck is 0.731 g/cm?, corresponding to a T-score of -1.1, and a Z-score of -0.2. NOTE: T-score: Standard deviation compared with peak bone mass of young adult mean. *Following the recommendations of the International Society of Bone densitometry, classification of hip BMD is based on the lower of two T-scores; total hip or femoral neck. IMPRESSION: Diminished bone mineral density of the bilateral hips consistent with osteopenia. Normal bone mineral density of the lumbar spine. Reviewed, Interpreted and Dictated by Kamryn Portillo MD Transcribed by Milly Larose Authenticated and [facility]
== END 2024-10-02 23:59 | disposition home or self-care (01) ==
LOC: RAD 08:42
PROVIDERS: PCP Nurse Practitioner Family; Visit Provider Obstetrics & Gynecology
DX: M85.89 Other specified disorders of bone density and structure, multiple sites (principal); Z79.818 Long term (current) use of other agents affecting estrogen receptors and estrogen levels; Z82.61 Family history of arthritis
CPT/HCPCS: 77080

== ENCOUNTER 2024-10-25 07:30 | Outpatient (CLI) | payer MEDICAID, SELFPAY ==
[2024-10-25 08:06] LABS: Basophils # 0.1 K/mm3 (0-0.2); Eosinophils # 0.1 K/mm3 (0.0-0.4); Eosinophils % 1.4 % (0.1-12.0); Hematocrit 41.2 % (37.0-47.0); Hemoglobin 14.6 g/dL (12.2-16.2); Lymphocytes # 1.7 K/mm3 (0.7-4.5); Lymphocytes % 32.5 % (10-50); Mean Corpuscular HGB Conc 35.4 g/dL (31.8-35.4); Mean Corpuscular Hemoglobin 32.4 pg (27.0-31.2); Mean Corpuscular Volume 91.4 fl (81-99); Mean Platelet Volume 8.7 fl (7.4-10.4); Monocytes # 0.4 K/mm3 (0.1-1.0); Monocytes % 8.4 % (1.7-9.3); Neutrophils # 2.9 K/mm3 (1.8-7.8); Neutrophils % 56.5 % (37.0-80.0); Nucleated Red Blood Cells # 0 10^3/uL; Nucleated Red Blood Cells % 0 %; Platelet Count 290 K/mm3 (142-424); Red Blood Count 4.51 M/mm3 (4.20-5.40); Red Cell Distribution Width 12.2 % (11.5-17.5); Red Cell Distribution Width-SD 41.2 fL; White Blood Count 5.1 K/mm3 (4.8-10.8)
[2024-10-25 09:06] LABS: Free T4 (Free Thyroxine) 1.12 ng/dl (0.78-2.19)
[2024-10-25 09:42] LABS: Chloride 107 mmol/L (98-107)
[2024-10-25 09:43] LABS: Albumin Level 4.4 g/dl (3.5-5.0); Potassium 4.5 mmoL/L (3.5-5.1); Sodium 141 mmol/L (136-145)
[2024-10-25 09:46] LABS: Alanine Aminotransferase 18 U/L (12-78); Albumin/Globulin Ratio 1.8 (1.1-1.8); Alkaline Phosphatase 46 U/L (38-126); Anion Gap 12.5 mEq/L (5-15); Aspartate Amino Transferase 24 U/L (14-36); Bilirubin,Total 0.9 mg/dl (0.2-1.3); Blood Urea Nitrogen 13 mg/dl (7-17); Calcium 9.5 mg/dl (8.4-10.2); Carbon Dioxide 26 mmol/L (22.0-30.0); Cholesterol 133 mg/dl (140-200); Estimated Glomerular Filt Rate 105 ml/min (>60); GFR (African American) 127 ML/MIN (>60); Globulin 2.4 g/dL (1.3-3.2); Glucose 105 mg/dl (74-100); Total Protein,Serum 6.8 g/dl (6.3-8.2); Triglycerides 84 mg/dl (30-150); VLDL Cholesterol 17 mg/dL (0-40)
[2024-10-25 09:47] LABS: Chol/HDL Ratio 2.6 (1-3.5); HDL Cholesterol 52 mg/dl (40-60)
[2024-10-25 09:57] LABS: Direct LDL Cholesterol 61.21 mg/dL (100-129)
[2024-10-25 09:59] LABS: 25-OH Vitamin D, Total 113 ng/mL (30-100)
[2024-10-25 10:04] LABS: T4 (Thyroxine) 9.1 ug/dl (5.53-11.0)
[2024-10-25 10:17] LABS: Thyroid Stimulating Hormone 1.09 uIU/mL (0.465-4.68)
[2024-10-25 10:22] LABS: Ferritin 71.2 ng/ml (11.1-264)
[2024-10-25 13:21] LABS: Vitamin B12 347 pg/mL (239-931)
[2024-10-26 08:41] LABS: Triiodothyronine (T3) Free 3.6 pg/mL (2.0-4.4)
== END 2024-10-25 23:59 | disposition home or self-care (01) ==
LOC: LAB 07:30
PROVIDERS: PCP Nurse Practitioner Family; Visit Provider Nurse Practitioner Family
DX: D64.9 Anemia, unspecified (principal); R79.89 Other specified abnormal findings of blood chemistry; E78.49 Other hyperlipidemia
CPT/HCPCS: 36415; 80053; 80061; 82306; 82607; 82728; 84436; 84439; 84443; 84481; 85025

== ENCOUNTER 2024-11-27 07:46 | Outpatient (CLI) | payer MEDICAID, SELFPAY ==
[2024-11-27 09:08] LABS: 25-OH Vitamin D, Total 81.1 ng/mL (30-100)
== END 2024-11-27 23:59 | disposition home or self-care (01) ==
LOC: LAB 07:47
PROVIDERS: PCP Nurse Practitioner Family; Visit Provider Nurse Practitioner Family
DX: E67.3 Hypervitaminosis D (principal)
CPT/HCPCS: 36415; 82306

== ENCOUNTER 2024-12-11 09:53 | Outpatient (CLI) | payer MEDICAID, SELFPAY ==
--- NOTE | 2024-12-11 09:56 | XR_ITS ---
FINAL REPORT CLINICAL HISTORY: Left Hand Pain pt states trigger finger left middle. FINDINGS: LEFT HAND Three views demonstrate no acute fracture or dislocation. The visualized joint spaces are normally aligned. There is mild degenerative joint disease of the DIP joints of the 1st and 4th digits. The soft tissues are unremarkable. IMPRESSION: No acute process. Reviewed, Interpreted and Dictated by Kamryn Portillo MD Transcribed by Aislinn Pineda Authenticated and [facility]
== END 2024-12-11 23:59 | disposition home or self-care (01) ==
LOC: RAD 09:54
PROVIDERS: PCP Nurse Practitioner Family; Visit Provider Orthopaedic Surgery
DX: M79.642 Pain in left hand (principal)
CPT/HCPCS: 73130

== ENCOUNTER 2025-01-03 10:45 | Outpatient (CLI) | payer SELFPAY ==
--- NOTE | 2025-01-03 11:00 | CT_ITS ---
APPROVED REPORT Reconciliation Analyst: CLINICAL INDICATION Coronary risk evaluation and stratification TECHNIQUE Image Acquisition: A 128 slice MDCT scanner (UB Accessa View) was used for data acquisition. A noncontrast coronary calcium scan was performed. A CT attenuation threshold of 130 Hounsfield units (HU) was used for the detection of calcium in contiguous voxels of 1 sq mm in area to be counted as individual lesions. A tube voltage of 120 KVp was used. The patient received no medications prior to the coronary calcium CT. Image Reconstruction Transaxial images were reconstructed at 0.67 mm slide thickness. Data was reviewed interactively on an advanced workstation capable of 2 and 3-dimensional displays in all conventional reconstruction formats, including multiplanar reformations, maximum intensity projections, curved multiplanar reformations, and volume rendered reconstructions. When applicable, selected routine images describing the relevant coronary anatomy and pathology were saved and sent to PACS. Complications None Technical Quality Overall image quality was good. Total DLP (Dose-Length Product) is 143.9 mGy-cm. The reported value represents the total of one or more individual components during the CT acquisition of this date and at this time, and as such, the same value may appear in more than one CT report depending on the interpreting/reporting physicians. COMPARISON None FINDINGS CT Coronary Calcium Scoring LMA (Left Main Artery) = 0 LAD (Left Anterior Descending) = 0 LCX (Left Coronary Circumflex) = 0 RCA (Right Coronary Artery) = 0 Total Calcium Score = 0 using the AJ-130 method. There is no identifiable calcification in the aortic valve, mitral annulus or mitral valve, pericardium, or myocardium. IMPRESSION -Coronary artery calcification is absent. -Total Calcium Score (Agatston Score) = 0 using the AJ-130 method. The interpretation of the calcium heart score is based on the following continuum*: 0 = no calcified plaque detected (risk of coronary artery disease is very low ??? less than 5%) 1-10 = calcium detected in extremely minimal levels (risk of coronary diseases is still low ??? less than 10%) 11-100 = mild levels of plaque detected with certainty (mild or minimal narrowing of heart arteries is likely) 101-400 = definite,at least moderate levels of plaque detected (relatively high risk of a heart attack within 3-5 years) >401-999 = extensive levels of plaque detected (high risk of heart attack, high levels of vascular disease are present, high likelihood of at least one significant coronary narrowing) *The calcium heart score quantifies the burden of coronary calcification/plaque in the coronary arteries. The calcium heart score does not evaluate the presence or the burden of non-calcified (i.e. soft) plaque. The coronary and cardiac findings of this Coronary Calcium CT were reviewed, reported, and signed by Bryson Eduardo MD (Strategy Director). Conclusion Electronically signed by : Delisa Eduardo MD 01/03/2025 22:52:28
== END 2025-01-03 23:59 | disposition home or self-care (01) ==
PROVIDERS: PCP Nurse Practitioner Family; Visit Provider Nurse Practitioner Family
DX: E78.5 Hyperlipidemia, unspecified (principal); I10 Essential (primary) hypertension; Z13.6 Encounter for screening for cardiovascular disorders
CPT/HCPCS: 75571

== ENCOUNTER 2025-01-03 11:18 | Outpatient (CLI) | payer MEDICAID, SELFPAY ==
--- NOTE | 2025-01-03 | CA_ITS ---
APPROVED REPORT EXAM: Comprehensive 2D, Doppler, and color-flow Echocardiogram Ops Manager: Denise Alcala CRT Ht: 5 ft 3 in Wt: 135lbs BSA: 1.64 BP: 127/78 mmHg Indications: Murmur, Hyperlipidemia, Hypertension/HDD 2D Dimensions LA Volume 35.50 mL LA Volume Index 21.10 mL/m2 (M/F) 16-34 M-Mode Dimensions RVDd 2.19 cm (0.9-2.6) LA Diam 3.31 cm (1.9-4.0) LVDd 4.75 cm (3.5-5.7) LVDs 3.03 cm (3.5-5.7) IVSd 0.94 cm (0.6-1.1) PWd 0.72 cm (0.6-1.1) EF (Teich) 65.80% FS 36.20% EDV (Teich) 104.90 mL TAPSE 1.74 (<1.7) ESV (Teich) 35.90 mL LV Diastology E Decel Time 177 (160-240 msec) E/A Ratio 0.99 MED A' 12.10 cm/s LAT A' 15.70 cm/s Aortic Valve AO Peak GR. 4.60 mmHg Mitral Valve MV A Velocity 66.0 (40-130 cm/s) E/A Ratio 0.99 Pulmonary Valve PV Peak Velocity 96.0 (50-150 cm/s) Tricuspid Valve TR P. Velocity 252.00 cm/s RAP Estimate 10.00 mmHg RVSP 35.40 mmHg Left Ventricle The left ventricle is normal size. The left ventricular systolic function is normal. The left ventricular ejection fraction is within the normal range. There is normal left ventricular wall thickness. There is normal LV segmental wall motion. The left ventricular diastolic function is normal. LVEF is 55%. Right Ventricle The right ventricle is normal size. The right ventricular systolic function is normal. Atria The left atrium size is normal. The right atrium size is normal. There is no Doppler evidence of interatrial shunt. Aortic Valve Aortic valve opens well. There is no aortic valvular stenosis. No aortic regurgitation is present. Mitral Valve The mitral valve is normal in structure. No evidence of mitral valve stenosis. Trace mitral regurgitation. Tricuspid Valve Tricuspid valve is grossly normal in structure and function. Trace tricuspid position. There is insufficient TR jet to estimate RVSP. Pulmonic Valve The pulmonary valve is normal in structure. Trace pulmonic regurgitation. Great Vessels The aortic root is normal in size. IVC is normal in size and collapses >50% with inspiration. Pericardium There is no pericardial effusion. Other Information Study Quality: Adequate Conclusion Normal biventricular systolic function. No significant valvular stenosis or regurgitation. Electronically signed by : Delisa Eduardo MD 01/09/2025 00:28:29
--- NOTE | 2025-01-03 14:30 | CA_ITS ---
FINAL REPORT CLINICAL HISTORY: DIZZINESS,HTN COMPARISON: None FINDINGS: RIGHT CAROTID: CCA PSV -68 cm/sec ICA PSV -82 cm/sec ICA/CCA PSV ratio -1.2. Comments: No appreciable plaque disease is noted. LEFTCAROTID: CCA PSV -82. cm/sec ICA PSV -89. cm/sec ICA/CCA PSV ratio -1.3. Comments: No appreciable plaque disease is noted. Antegrade flow is seen within the vertebral arteries. IMPRESSION: Carotid stenosis classified less than 50% Reviewed, Interpreted and Dictated by Yadi Wheeler MD Transcribed by Milly Larose Authenticated and [facility]
== END 2025-01-03 23:59 | disposition home or self-care (01) ==
LOC: RT 11:18
PROVIDERS: PCP Nurse Practitioner Family; Visit Provider Nurse Practitioner Family
DX: I65.23 Occlusion and stenosis of bilateral carotid arteries (principal); I10 Essential (primary) hypertension; E78.5 Hyperlipidemia, unspecified; R01.1 Cardiac murmur, unspecified
CPT/HCPCS: 93306; 93880

== ENCOUNTER 2025-02-12 12:40 | Outpatient (CLI) | payer MEDICAID, SELFPAY ==
--- OUTSIDE RECORDS SUMMARY | 2025-02-05 13:29 | XMS_ITS | Encounter Summary ---
[facility] Address [address] [place] [address] Care Team Providers Care [employer]oured [employer] Officer Name Role Phone Tonja Martinez APRN Primary Care Provider [phone] Reason for Referral * Diagnostic Imaging (Routine) - Closed Specialty Diagnoses / Procedures Referred By Palmira ellis Referred To Contact Radiology Diagnoses Screening mammogram for breast cancer Procedures Mammo Screening Digital Tomosynthesis Bilateral With CAD Tonja Martinez APRN [address] [place] [address] Phone: tel: fax: Referral ID Status Reason Start Date Expiration Date Visits Re quested Visits Authorized [id number] Closed 12/27/2024 03/28/2026 1 1 Reason for Visit * Diagnostic Imaging (Routine) - Closed Specialty Diagnoses / Procedures Referred By Palmira ellis Referred To Contact Radiology Diagnoses Screening mammogram for breast cancer Procedures Mammo Screening Digital Tomosynthesis Bilateral With CAD Tonja Martinez APRN [address] [place] [address] Phone: tel: fax: Referral ID Status Reason Start Date Expiration Date Visits Re quested Visits Authorized [id number] Closed 12/27/2024 03/28/2026 1 1 Encounter Details Date Type Department Care Team (Latest Contact Info) Description 02/05/2025 1:29 PM EDT - 02/05/2025 11:59 PM EDT Hospital Encounter [facility] [place] [address] Tonja Martinez, MAINTENANCE EQUIPMENT OPERATOR [address] [facility] [address] [place] [address] Screening mammogram for breast cancer Discharge Disposition: Home or Self Care Social History Tobacco Use Types Packs/Day Years Used Date Smoking Tobacco: Former Cigarettes Alcohol Use Standard Drinks/Week Comments No 0 (1 standard drink = 0.6 oz pur e alcohol) Abuse Screen Answer Date Recorded Unsafe at Home or Work/School Not on file Feels Threatened by Someone? Not on file 03/2023 Does Anyone Keep You from Co ntacting Others or Doint Things Outside the Home? Not on file 04/19/2023 Physical Sign of Abuse Present Not on file 1 Housing Stability Answer Date Recorded Current Living Arrangements Not on file 03/2023 Potentially Unsafe Housing Conditions Not on светлана e 04/19/2023 Family and Community Support Answer Basilio e Recorded Help with Day-to-Day Activities Not on file 04/19/2023 Lonely or Isolated Not on file 04/19/2023 Employment Answer Date Recorded Do you want help finding or keeping work or a micha b? Not on file 04/19/2023 Disabilities Answer Date Recorded Concentrating, Remembering, or Making Decisions Difficulty Not on file 04/19/2023 Doing Errands Independently Difficulty Not on fi le 04/19/2023 Education Answer Date Recorded Help with school or training? Not on file Preferred Language Not on file 04/19/2023 Comments No Sex and Gender Information Value Date Recorded Sex Assigned at Not on file Legal Sex Female 12:03 PM EDT Gender Identity Not on file Sexual Orientation Not on file documented as of this encounter Medications at Time of Discharge ALPRAZolam (XANAX) 0.25 MG tablet Take 0.25 mg by mouth 2 (two) times a day as needed for anxiety. atenolol (TENORMIN) 25 MG tablet Take 25 mg by mouth daily. atorvastatin (LIPITOR) 10 MG tablet Take 10 mg by mouth daily. cefuroxime (CEFTIN) 500 MG tablet Take 1 tablet by mouth 2 (Two) Times a Day. 20 tablet 1 01/24/2019 celecoxib (CeleBREX) 200 MG capsule Take 200 mg by mouth Daily. Cholecalciferol (VITAMIN D3) 2000 UNITS tablet Take by mouth. fluocinonide (LIDEX) 0.05 % ointmentIndicati ons:Irritation of vulva Apply topically to the appropriate area as directed Daily. 30 g 3 02/03/2018 losartan-hydroch lorothiazide (HYZAAR) 50-12.5 MG per tablet Take 1 tablet by mouth daily. medroxyPROGESTER one Acetate 150 MG/ML suspension prefilled syringe Inject 150 mg into the appropriate muscle as directed by prescriber Every 3 (Three) Months. 1 each 3 01/24/2019 potassium chloride (K-DUR,KLOR-CON) 20 MEQ CR tablet 0 07/08/2018 potassium chloride ER (K-TAB) 20 MEQ tablet controlled-relea se ER tablet Take 20 mEq by mouth 2 (Two) Times a Day. 0 10/26/2017 ranitidine (ZANTAC) 150 MG tablet Take 150 mg by mouth 2 (two) times a day. terconazole (Terazol 7) 0.4 % vaginal cream Insert 1 applicator into the vagina Every Night. 45 g 12/26/2019 documented as of this encounter Plan of Treatment Upcoming Encounters Date Type Department Care Team (Late st Contact Info) Description 02/19/2025 2:00 PM EDT Appointment [facility] [address] [place] [address] documented as of this encounter Procedures Procedure Name Priority Date/Time Associated Diagnosis Comments MAMMO SCREENING DIGITAL TOMOSYNTHESIS BILATERAL W CAD Routine 02/05/2025 2:05 PM EDT Screening mammogram for breast cancer documented in this encounter Results * (ABNORMAL) Mammo Screening Digital Tomosynthesis Bilateral With CAD (02/05/2025 2:05 PM EDT) Anatomical Region Laterality Modality Breast N/A Mammography 02/09/2025 1:26 PM EDT Impressions 02/09/2025 1:33 PM EDT Bilateral asymmetries RECOMMENDATION: Right MLO focal compression, left CC focal compression, and bilateral ML views with tomosynthesis. ML imaging should be performed with the nipple in profile and an open inframammary fold region. BI-RADS CATEGORY 0, INCOMPLETE: NEED ADDITIONAL IMAGING EVALUATION. The patient will be contacted by our office to schedule an appointment for the additional studies. A letter, in lay terminology, with the results of this exam will be mailed to the patient. CAD was utilized. The standard false-negative rate of mammography is between 10% and 25%. Complex patterns or increased breast density will markedly elevate the false-negative rate of mammography. PHYSICIAN ORDER DIAGNOSTIC MAMMOGRAM AND/OR ULTRASOUND. DIAGNOSIS: ABNORMAL SCREENING MAMMOGRAM 02/09/2025 1:[address] Mari Mijares MD on Narrative 02/09/2025 1:33 PM EDT BILATERAL SCREENING MAMMOGRAM WITH TOMOSYNTHESIS: HISTORY: The patient has no personal history or significant family history of breast cancer and no focal breast complaints at the time of screening mammography. A maternal aunt was diagnosed with breast cancer. The patient has lost 16 pounds since her prior mammogram. TECHNIQUE: Bilateral CC and MLO low dose, full field digital mammographic images were obtained with tomosynthesis. COMPARISON: 02/03/2024, 02/01/2023, 07/23/2022, 12/23/2021, 11/04/2021, 09/09/2020, 07/14/2019, 05/30/2019, 05/18/2018, 05/07/2017 FINDINGS: The breast tissue is heterogeneously dense, which may obscure small masses. RIGHT BREAST There is an asymmetry in the superior breast. Additional imaging is recommended. The remaining fibroglandular pattern is stable. No suspicious groups of calcifications were noted. LEFT BREAST There is an asymmetry in the lateral breast. Additional imaging is recommended. The remaining fibroglandular pattern is stable. No suspicious groups of calcifications were noted. us Tonja Martinez APRN IMG MAMMOGRAPHY ORDERABLES F inal Result documented in this encounter Visit Diagnoses Diagnosis Screening mammogram for breast cancer documented in this encounter Care Teams [employer] Officer Relationship Specialty Start Date End Date Tonja Martinez APRN [facility] [place] [id number] PCP - General Internal Medicine 02/03/24 documented as of this encounter
--- OUTSIDE RECORDS SUMMARY | 2025-02-12 12:43 | XMS_ITS | Encounter Summary ---
[facility] Address [address] [place] [address] Care Team Providers Care Sweet Potato Disintegrator Name Role Phone MartinezTonja JAILYN Primary Care Provider + [phone] Encounter Details Date Type Department Care Team (Latest Contact Info) Description 02/05/2025 Travel Social History Tobacco Use Types Packs/Day Years [...] on file documented as of this encounter Plan of Treatment Upcoming Encounters Date Type Department Care Team (Late st Contact Info) Description 02/19/2025 2:00 PM EDT Appointment [address] [place] [address] documented as of this encounter Visit Diagnoses Not on filedocumented in this encounter Care Teams Sweet Potato Disintegrator Relationship Specialty Start Date End Date Tonja Martinez APRN [address] [place] [address] PCP - General Internal Medicine 02/03/24 documented as of this encounter
--- OUTSIDE RECORDS SUMMARY | 2025-02-12 12:43 | XMS_ITS | Clinical Summary ---
Author Organization [facility] Address [address] [place] [address] Care Team Providers Care Assistant Casino Shift Manager Name Role Phone MartinezTonja JAILYN Primary Care Provider + [phone] Allergies No known active allergies Medications atenolol (TENORMIN) 25 MG tablet Take 25 mg by mouth daily. Active atorvastatin (LIPITOR) 10 MG tablet Take 10 mg by mouth daily. Active Cholecalciferol (VITAMIN D3) 2000 UNITS tablet Take by mouth. Activ e ALPRAZolam (XANAX) 0.25 MG tablet Take 0.25 mg by mouth 2 (two) times a day as needed for anxiety. Active ranitidine (ZANTAC) 150 MG tablet Take 150 mg by mouth 2 (two) times a day. Active losartan-hydroc hlorothiazide (HYZAAR) 50-12.5 MG per tablet Take 1 tablet by mouth daily. Active potassium chloride ER (K-TAB) 20 MEQ tablet controlled-rele ase ER tablet Take 20 mEq by mouth 2 (Two) Times a Day. 0 8 Active fluocinonide (LIDEX) 0.05 % ointmentIndicat ions:Irritation of vulva Apply topically to the appropriate area as directed Daily. 30 g 3 8 Active celecoxib (CeleBREX) 200 MG capsule Take 200 mg by mouth Daily. Active potassium chloride (K-DUR,KLOR-CON ) 20 MEQ CR tablet 0 8 Active medroxyPROGESTE Cam Acetate 150 MG/ML suspension prefilled syringe Inject 150 mg into the appropriate muscle as directed by prescriber Every 3 (Three) Months. 1 each 3 9 Active cefuroxime (CEFTIN) 500 MG tablet Take 1 tablet by mouth 2 (Two) Times a Day. 20 tablet 1 9 Active terconazole (Terazol 7) 0.4 % vaginal cream Insert 1 applicator into the vagina Every Night. 45 g 0 Active Active Problems No known active problems Encounters Date Type Department Care Team Description 02/05/2025 1:29 PM EDT - 02/05/2025 11:59 PM EDT Hospital Encounter [facility] [address] [place] [id number] Tonja Martinez APRN Screening mammogram for breast cancer Discharge Disposition: Home or Self Care 02/05/2025 Travel from Last 3 Months Family History Medical History Relation Name Comments Pancreatic cancer Father Breast cancer Maternal Aunt GREAT DX AGE UNKNOW N Heart attack Mother Ovarian cancer Neg Hx Relation Name Status Comments Father (Age 50) Maternal Aunt GREAT Mother (Age 72) Social History Tobacco Use Types Packs/Day Years [...] on file Sexual Orientation Not on file Last Filed Vital Signs Vital Sign Reading Time Taken Comments Blood Pressure 128/74 02/03/2018 11:50 AM EDT Pulse 84 04/11/2018 11:28 AM EDT Temperature 36.9 C (98.5 F) 02/24/2017 2:35 PM EDT Respiratory Rate - - Oxygen Saturation 99% 04/11/2018 11:28 AM EDT Inhaled Oxygen Concentration - - Weight 67.2 kg (148 lb 3.2 oz) 10/31/2018 11:54 AM EDT Height 157.5 cm (5' 2.01 ) 04/11/2018 11:28 AM E DT Body Mass Index 27.1 04/11/2018 11:28 AM EDT Plan of Treatment Upcoming Encounters Date Type Department Care Team (Late st Contact Info) Description 02/19/2025 2:00 PM EDT Appointment [facility] [address] [place] [address] [address] [place] [address] Health Maintenance Due Date Last Done Comments TDAP/TD VACCINES (1 - Tdap) 1991 ANNUAL PHYSICAL 03/09/2016 HEPATITIS C SCREENING 03/09/2016 COLOGUARD 2017 COLON CANCER SCREENING 5 YEA R SIGMOIDOSCOPY 2017 COLONOSCOPY 2017 COL[address]ECTAL CANCER SCREENING 2017 CT COLONOGRAPHY 2017 FECAL OCCULT BLOOD TEST 2017 FIT Testing (1 year) 2017 Annual Gynecologic Pelvic an d Breast Exam 02/04/2019 02/03/2018 ZOSTER VACCINE (1 of 2) 2022 COVID-19 Vaccine (2023-2 5 season) 2024 04/03/2022, 05/28/2021, 10/20/2020, Additional history exists INFLUENZA VACCINE 04/11/2025 06/20/2024, , 03/25/2020, Additional history exists MAMMOGRAM 02/05/2027 02/05/2025, 01/10, 02/01/2023, Additional history exists Pneumococcal Vaccine 50+ Completed 05/17/2024 Procedures Procedure Name Priority Date/Time Associated Diagnosis Comments MAMMO SCREENING DIGITAL TOMOSYNTHESIS BILATERAL W CAD Routine 02/05/2025 2:05 PM EDT Screening mammogram for breast cancer from Last 3 Months Results * (ABNORMAL) Mammo Screening Digital Tomosynthesis [...] No suspicious groups of calcifications were noted. Tonja Martinez APRN IMG MAMMOGRAPHY ORDERABLES F inal Result from Last 3 Months Insurance [employer] Care Teams Assistant Casino Shift Manager Relationship Specialty Start Date End Date Tonja Martinez APRN [address] [place] [address] PCP - General Internal Medicine 02/03/24
[2025-02-12 14:35] LABS: Alanine Aminotransferase 17 U/L (12-78); Albumin Level 4.5 g/dl (3.5-5.0); Albumin/Globulin Ratio 2.5 (1.1-1.8); Alkaline Phosphatase 45 U/L (38-126); Anion Gap 9.0 mEq/L (5-15); Aspartate Amino Transferase 26 U/L (14-36); Bilirubin,Total 0.6 mg/dl (0.2-1.3); Blood Urea Nitrogen 16 mg/dl (7-17); Calcium 9.9 mg/dl (8.4-10.2); Carbon Dioxide 31 mmol/L (22.0-30.0); Chloride 102 mmol/L (98-107); Cholesterol 190 mg/dl (140-200); Creatinine,Serum 0.70 mg/dl (0.52-1.04); Estimated Glomerular Filt Rate 88 ml/min (>60); GFR (African American) 106 ML/MIN (>60); Globulin 1.8 g/dL (1.3-3.2); Glucose 94 mg/dl (74-100); HDL Cholesterol 59 mg/dl (40-60); Magnesium 2.0 mg/dl (1.6-2.3); Potassium 4.0 mmoL/L (3.5-5.1); Sodium 138 mmol/L (136-145); Total Protein,Serum 6.3 g/dl (6.3-8.2); Triglycerides 104 mg/dl (30-150)
== END 2025-02-12 23:59 | disposition home or self-care (01) ==
LOC: LAB 12:41
PROVIDERS: PCP Nurse Practitioner Family; Visit Provider Nurse Practitioner Family
DX: E78.49 Other hyperlipidemia (principal); I10 Essential (primary) hypertension
CPT/HCPCS: 36415; 80053; 80061; 83735

== ENCOUNTER 2025-06-04 09:53 | Outpatient (CLI) | payer MEDICAID, SELFPAY ==
--- NOTE | 2025-06-04 09:55 | XR_ITS ---
FINAL REPORT CLINICAL HISTORY: left knee pain tender weakness with stepping up, stairs COMPARISON: None FINDINGS: AP, lateral and oblique views of the left knee were obtained. There is no prior exam for comparison. There is no acute osseous abnormality of the left knee. The joint space is preserved. The soft tissues are normal. There is no joint effusion. IMPRESSION: No acute osseous abnormality of the left knee. Reviewed, Interpreted and Dictated by Kamryn Portillo MD Transcribed by Milly Larose Authenticated and [facility]
--- OUTSIDE RECORDS SUMMARY | 2025-06-04 09:59 | XMS_ITS | Clinical Summary ---
Author Organization [facility] Address [address] [place] [address] Care Team Providers Care Blender Helper Name Role Phone MartinezTonja JAILYN Primary Care Provider + [phone] Allergies No known active allergies Medications atenolol [...] Active Active Problems No known active problems Family History Medical History Relation Name Comments [...] 04/11/2018 11:28 AM EDT Plan of Treatment Health Maintenance Due Date Last Done Comments Annual Gynecologic Pelvic an d Breast Exam 1972 TDAP/TD VACCINES (1 - Tdap) 1991 ANNUAL PHYSICAL 03/09/2016 HEPATITIS C SCREENING 03/09/2016 COLOGUARD 2017 COLON CANCER SCREENING 5 YEA R SIGMOIDOSCOPY 2017 COLONOSCOPY 2017 [address] CANCER SCREENING 2017 CT COLONOGRAPHY 2017 FECAL OCCULT BLOOD TEST 2017 FIT Testing (1 year) 2017 ZOSTER VACCINE (1 of 2) 2022 INFLUENZA VACCINE 02/09/2025 06/20/2024, , 03/25/2020, Additional history exists MAMMOGRAM 02/19/2027 02/19/2025, 01/10, 02/03/2024, Additional history exists Pneumococcal Vaccine 50+ Completed 05/17/2024 Procedures Procedure Name Priority Date/Time Associated Diagnosis Comments MAMMO DIAGNOSTIC DIGITAL TOMOSYNTHESIS BILATERAL W CAD Routine 02/19/2025 2:19 PM EDT Abnormal mammogram from Last 3 Months or Most Recently Relevant to Health Maintenance Results * Mammo Diagnostic Digital Tomosynthesis Bilateral With CAD (02/19/2025 2:19 PM EDT) Anatomical Region Laterality Modality Breast Bilateral Mammography 02/19/2025 2:01 PM EDT Impressions 02/19/2025 2:02 PM EDT BI-RADS 1 negative exam RECOMMENDATION: Routine annual screening mammography in 1 year unless clinically indicated sooner. The standard false-negative rate of mammography is between 10% and 25%. Complex patterns or increased breast density will markedly elevate the false-negative rate of mammography. A results letter, in lay terminology, will be given to the patient at the conclusion of the exam. 02/19/2025 2:[address] Elizabeth Santizo MD on Narrative 02/19/2025 2:02 PM EDT EXAMINATION:MAMMO DIAGNOSTIC DIGITAL TOMOSYNTHESIS BILATERAL W CAD- HISTORY: Recall from screening examination with tomosynthesis for bilateral asymmetries TECHNIQUE: Bilateral combination 2D 3D spot compression views bilateral combination 2D 3D 90 degree lateral views COMPARISON: Comparison is made to prior mammograms dating back to 11/04/2021 FINDINGS: Focused compression effaces the areas of concern bilaterally. The breast parenchymal pattern is stable dating back to November 04, 2021 Mari Mijares MD IMG MAMMOGRAPHY ORDERABLES Fin al Result from Last 3 Months or Most Recently Relevant to Health Maintenance Insurance [employer] Care Teams Blender Helper Relationship Specialty Start Date End Date Tonja Martinez APRN [address] [place] [id number] PCP - General Internal Medicine 02/03/24
== END 2025-06-04 23:59 | disposition home or self-care (01) ==
LOC: RAD 09:54
PROVIDERS: PCP Nurse Practitioner Family; Visit Provider Orthopaedic Surgery
DX: M25.562 Pain in left knee (principal); R53.1 Weakness
CPT/HCPCS: 73562

== ENCOUNTER 2025-06-11 15:54 | Outpatient (CLI) | payer MEDICAID, SELFPAY ==
[2025-06-11 17:56] LABS: Alanine Aminotransferase 16 U/L (12-78); Albumin Level 4.8 g/dl (3.5-5.0); Albumin/Globulin Ratio 2.2 (1.1-1.8); Alkaline Phosphatase 53 U/L (38-126); Anion Gap 10.2 mEq/L (5-15); Aspartate Amino Transferase 24 U/L (14-36); Bilirubin,Total 0.6 mg/dl (0.2-1.3); Blood Urea Nitrogen 13 mg/dl (7-17); Calcium 10.0 mg/dl (8.4-10.2); Carbon Dioxide 26 mmol/L (22.0-30.0); Chloride 102 mmol/L (98-107); Cholesterol 216 mg/dl (140-200); Creatinine,Serum 0.60 mg/dl (0.52-1.04); Estimated Glomerular Filt Rate 105 ml/min (>60); GFR (African American) 127 ML/MIN (>60); Globulin 2.2 g/dL (1.3-3.2); Glucose 98 mg/dl (74-100); HDL Cholesterol 69 mg/dl (40-60); Potassium 4.2 mmoL/L (3.5-5.1); Sodium 134 mmol/L (136-145); Total Protein,Serum 7.0 g/dl (6.3-8.2); Triglycerides 312 mg/dl (30-150)
[2025-06-11 18:12] LABS: 25-OH Vitamin D, Total 73.8 ng/mL (30-100)
[2025-06-11 18:16] LABS: T4 (Thyroxine) 7.6 ug/dl (5.53-11.0)
[2025-06-11 18:29] LABS: Thyroid Stimulating Hormone 0.60 uIU/mL (0.465-4.68)
--- OUTSIDE RECORDS SUMMARY | 2025-06-12 13:01 | XMS_ITS | Clinical Summary ---
Author Organization [facility] Address [address] [place] [address] Care Team Providers Care Slate Cutter Operator Name Role Phone MartinezTonja JAILYN Primary Care Provider + [phone] Allergies No known active allergies Medications atenolol [...] to Health Maintenance [place] [address] Care Teams Slate Cutter Operator Relationship Specialty Start Date End Date Tonja Martinez APRN [address] [place] [id number] PCP - General Internal Medicine 02/03/24
[2025-06-13 08:13] LABS: Triiodothyronine (T3) Free 2.4 pg/mL (2.0-4.4)
== END 2025-06-11 23:59 | disposition home or self-care (01) ==
LOC: LAB.DROPOF 06-12 12:55
PROVIDERS: PCP Nurse Practitioner Family; Visit Provider Nurse Practitioner Family
DX: R79.89 Other specified abnormal findings of blood chemistry (principal); I10 Essential (primary) hypertension; E78.49 Other hyperlipidemia
CPT/HCPCS: 80053; 80061; 82306; 84436; 84443; 84480; 84481; 86376; 86800

== ENCOUNTER 2025-06-25 08:46 | Outpatient (CLI) | payer MEDICAID, SELFPAY ==
--- NOTE | 2025-06-25 09:00 | MR_ITS ---
FINAL REPORT CLINICAL HISTORY: left knee pain pain while walking up steps feels like its going to give out fall 2017 COMPARISON: None FINDINGS: Multi planar MR imaging was performed of the left knee. The anterior and posterior cruciate ligaments are intact. The quadriceps and patellar tendons are intact. There is a small tear of the posterior horn of the medial meniscus. The lateral meniscus is intact. The medial and lateral collateral ligaments appear intact. The medial and lateral retinacula appear intact. There are multiple osteochondral lesions involving the undersurface of the medial articular facet of the patella, measuring up to 6 mm in size. No evidence of soft tissue inflammatory reaction. IMPRESSION: Small tear posterior horn medial meniscus. Osteochondral lesions of the medial articular facet of the patella measuring up to 6 mm in size. Reviewed, Interpreted and Dictated by Abel Orellana MD Transcribed by Milly Larose Authenticated and [facility]
== END 2025-06-25 23:59 | disposition home or self-care (01) ==
LOC: RAD 08:46
PROVIDERS: PCP Nurse Practitioner Family; Visit Provider Orthopaedic Surgery
DX: S83.242A Other tear of medial meniscus, current injury, left knee, initial encounter (principal); M93.862 Other specified osteochondropathies, left lower leg
CPT/HCPCS: 73721